=== PATIENT | female | born 1980 | race Caucasian/White ===

== ENCOUNTER 2017-10-08 12:47 | Emergency (ER) | payer BC ==
[~2017-10-08] VITALS: Ht 177.8 cm; Wt 131.3 kg
[2017-10-08 13:27] LABS: HEMATOCRIT 42.5 % (36.0-46.0); HEMOGLOBIN 14.8 G/DL (11.9-15.5); MCH 31.5 PG (29.0-34.0); MCHC 34.8 G/DL (30.0-36.0); MCV 90.4 FL (83-99); PLATELET COUNT 308 K/uL (156-360); RBC DIS.WIDTH-CV 11.6 % (11.8-14.6); RBC DIS.WIDTH-SD 38.6 % (39-53); WHITE BLOOD COUNT 7.1 K/uL (4.1-10.2)
[2017-10-08 13:38] LABS: CHLORIDE 105 mEq/L (99-109); SODIUM 141 mEq/L (136-147)
[2017-10-08 13:39] LABS: GLUCOSE 98 mg/dL (70-99)
[2017-10-08 13:43] LABS: CREATININE 0.8 mg/dL (0.6-1.3)
[2017-10-08 13:44] LABS: UREA NITROGEN (BUN) 13 mg/dL (9-23)
[2017-10-08 13:46] LABS: GFR ESTIMATE (CALCULATED) > 59 mL/min/
[2017-10-08 13:48] LABS: TROP-I INTERPRETATION NEGATIVE; TROPONIN-I < 0.01 ng/mL (0.0-0.30)
[2017-10-08 13:51] LABS: QUANTITATIVE HCG < 4.0 MIU/ML
[2017-10-08 16:43] LABS: TROP-I INTERPRETATION NEGATIVE; TROPONIN-I < 0.01 ng/mL (0.0-0.30)
[2017-10-08 16:58] VITALS: BP 136/74
== END 2017-10-08 16:59 | disposition home or self-care (01) ==
LOC: EME 12:47
PROVIDERS: Physician Assistant Medical
DX: R07.9 Chest pain, unspecified (principal); Z82.49 Family history of ischemic heart disease and other diseases of the circulatory system
CPT/HCPCS: 71046; 80048; 84484; 84702; 85027; 93005; 99281; 99284